=== PATIENT | female | born 1945 | race African-American/Black ===

== ENCOUNTER 2017-02-26 13:51 | Emergency (ER) | payer OTHER ==
[~2017-02-26] VITALS: Ht 170.2 cm; Wt 88.0 kg
[~2017-02-26 13:51] MED LIST: amlodipine; metformin
[2017-02-26] MEDS ORDERED: DIPHENHYDRAMINE 50MG CAPSULE PO ONE (15:30)
[2017-02-26] MEDS ORDERED: PREDNISONE 20MG TABLET PO ONE (15:30)
[2017-02-26 16:20] VITALS: BP 129/69
== END 2017-02-26 16:21 | disposition home or self-care (01) ==
LOC: ER 15:47
DX: T78.40XA Allergy, unspecified, initial encounter (principal); X58.XXXA Exposure to other specified factors, initial encounter; I10 Essential (primary) hypertension; E11.9 Type 2 diabetes mellitus without complications; Z88.0 Allergy status to penicillin
CPT/HCPCS: 99283; J7512; Q0163

== ENCOUNTER 2022-01-18 14:39 | Emergency (ER) | payer MEDICARE, MEDICAID ==
[~2022-01-18] VITALS: Ht 170.2 cm; Wt 83.0 kg
[2022-01-19 01:43] VITALS: BP 111/75
== END 2022-01-19 01:43 | disposition home or self-care (01) ==
LOC: ER 14:39
DX: S80.11XA Contusion of right lower leg, initial encounter (principal); E11.9 Type 2 diabetes mellitus without complications; I10 Essential (primary) hypertension; W01.0XXA Fall on same level from slipping, tripping and stumbling without subsequent striking against object, initial encounter; Y93.89 Activity, other specified; Y92.89 Other specified places as the place of occurrence of the external cause; Y99.9 Unspecified external cause status; Z88.0 Allergy status to penicillin
CPT/HCPCS: 73552; 73560; 99283

== ENCOUNTER 2023-03-07 20:07 | Emergency (ER) | payer MEDICARE, MEDICAID ==
[~2023-03-07] VITALS: Ht 170.2 cm; Wt 72.5 kg
[2023-03-07 20:22] VITALS: BP 144/82; O2SAT 98
[2023-03-07 20:55] LABS: BASOPHILS % 0.3 % (0.0-2.0); EOSINOPHILS % 0.1 % (0.0-5.0); HEMATOCRIT. 38.5 % (36.0-48.0); LYMPHOCYTES % 24.8 % (20.0-50.0); MEAN CORPUSCULAR HEMOGLOBIN 30.8 pg (28.0-32.0); MEAN CORPUSCULAR HGB CONC 33.9 g/dL (31.0-37.0); MEAN CORPUSCULAR VOLUME 90.9 fL (81.0-99.0); MEAN PLATELET VOLUME 8.7 fl (7.4-10.4); MONOCYTES % 7.8 % (2.0-8.0); PLATELET 160 x1000/uL (130-400); RED BLOOD CELL COUNT 4.23 mill/uL (4.2-5.4); RED CELL DISTRIBUTION WIDTH 13.6 % (11.6-14.6); WHITE BLOOD COUNT 5.1 x1000/uL (4.5-11.0)
[2023-03-07 21:03] LABS: CHLORIDE 102 mEq/L (98-107); INDEX HEMOLYSI 1 (1-3); INDEX ICTERIC 1 (1-4); INDEX LIPEMIC 1 (1-3); POTASSIUM 3.6 mEq/L (3.5-5.1); SODIUM 136 mEq/L (136-145)
[2023-03-07 21:06] LABS: CLARITY URINE CLOUDY (CLEAR); COLOR URINE YELLOW (YELLOW); GLUCOSE URINE 3+ (NEGATIVE); KETONES URINE TRACE (NEGATIVE); LEUKOCYTE ESTERASE URINE TRACE (NEGATIVE); NITRITE URINE NEGATIVE (NEGATIVE); OCCULT BLOOD URINE NEGATIVE (NEGATIVE); PH URINE 5.5 (4.5-8.0); PROTEIN URINE TRACE (NEGATIVE)
[2023-03-07 21:12] LABS: ALANINE AMINOTRANSFERASE 28 IU/L (13-61); ALBUMIN 3.1 g/dL (3.4-5.0); ASPARTATE AMINOTRANSFERASE 24 IU/L (15-37); BILIRUBIN TOTAL 0.6 mg/dL (0.1-1.0); CALCIUM 9.2 mg/dL (8.5-10.1); CARBON DIOXIDE 28 mEq/L (21-32); CREATININE 1.5 mg/dL (0.6-1.3); GLUCOSE 199 mg/dL (70-105); UREA NITROGEN BLOOD 24 mg/dL (7-21)
[2023-03-07 21:17] LABS: BACTERIA URINE 3+; SQUAMOUS EPITHELIAL CELL URINE 2+ /lpf (RARE/1+); WBC URINE 15-25 /hpf (0-2); YEAST URINE NONE SEEN
[2023-03-07 22:26] VITALS: PULSE 83; RESP 17; TEMP 99.2
== END 2023-03-07 22:28 | disposition home or self-care (01) ==
LOC: ER 21:08
DX: U07.1 COVID-19 (principal); E11.9 Type 2 diabetes mellitus without complications; I10 Essential (primary) hypertension; Z88.0 Allergy status to penicillin
CPT/HCPCS: 99282; 87426; 80053; 81003; 85025; 87086; 87804 ×2; 36415; C9803